=== PATIENT | male | born 1970 ===

== ENCOUNTER 2018-10-30 10:22 | Outpatient (CLI) | payer OTHER | END 2018-10-30 10:24 | disposition home or self-care (01) | LOC: SONOGRAMA 10:22 | DX: E04.1 Nontoxic single thyroid nodule (principal); E78.49 Other hyperlipidemia; E55.9 Vitamin D deficiency, unspecified; E03.8 Other specified hypothyroidism; Z68.27 Body mass index [BMI] 27.0-27.9, adult ==